=== PATIENT | male | born 1995 ===

== ENCOUNTER 2021-11-01 15:32 | Emergency (ER) | payer SELFPAY ==
[~2021-11-01] VITALS: Ht 177.8 cm; Wt 54.5 kg
[2021-11-01 16:31] VITALS: BP 144/78; PULSE 84; TEMP 98.5
== END 2021-11-01 17:09 | disposition left against medical advice (07) ==
LOC: COL.ER 15:32
DX: R44.3 Hallucinations, unspecified (principal); Z28.310 Unvaccinated for COVID-19

== ENCOUNTER 2021-11-04 23:33 | Emergency (ER) | payer SELFPAY ==
[~2021-11-04] VITALS: Ht 175.3 cm; Wt 54.5 kg
[2021-11-05 00:30] VITALS: BP 142/81; TEMP 98
[2021-11-05] MEDS ORDERED: TORADOL 10MG TA10 MG PO (00:59)
[2021-11-05 01:26] VITALS: PULSE 74
== END 2021-11-05 01:26 | disposition home or self-care (01) ==
LOC: COL.ER 23:33
DX: K02.9 Dental caries, unspecified (principal); Z28.310 Unvaccinated for COVID-19

== ENCOUNTER 2021-11-06 16:29 | Emergency (ER) | payer SELFPAY ==
[~2021-11-06] VITALS: Ht 175.3 cm; Wt 54.5 kg
[~2021-11-06 16:29] MED LIST: TORADOL 10MG TA10 MG PO
[2021-11-06 16:48] VITALS: TEMP 98.6
[2021-11-06 17:25] LABS: BASO % 0.4 % (0.0-2.0); EOS # 0.1 K/mm3 (0.0-0.7); EOS % 0.7 % (0.0-4.0); GRAN # 4.2 K/mm3 (1.4-6.5); GRAN % 61.1 % (42.2-75.2); HEMATOCRIT 41.9 % (42.0-52.0); HEMOGLOBIN 13.5 g/dl (13.5-18.0); LYMPH # 1.4 K/mm3 (1.2-3.4); LYMPH % 19.8 % (20.0-51.0); MEAN CELL VOLUME 97 fl (80.0-100.0); MEAN CORPUSCULAR HEMOGLOBIN 31 pg (27-31); MEAN CORPUSCULAR HGB CONC 32 g/dl (33.0-37.0); MEAN PLATELET VOLUME 10.9 fl (7.4-10.4); MONO # 1.2 K/mm3 (0.1-0.6); MONO % 17.9 % (1.7-9.3); PLATELET COUNT 186 K/mm3 (130-400); RED BLOOD COUNT 4.31 M/mm3 (4.20-5.60); REDCELL DISTRIBUTION WIDTH-CV 12.3 % (11.5-14.5)
[2021-11-06 17:41] LABS: COLLECTION METHOD CLEAN CATCH
[2021-11-06 17:45] LABS: ALANINE AMINOTRANSFERASE 19 U/L (0-55); ALBUMIN 3.8 gm/dL (3.5-5.0); ALKALINE PHOSPHATASE 72 U/L (40-150); ANION GAP 8 mmol/L (7-16); AST,SGOT 22 U/L (5-34); BILIRUBIN,TOTAL 0.3 mg/dL (0.2-1.2); BLOOD UREA NITROGEN 9 mg/dL (9-21); CALCIUM 9.1 mg/dL (8.4-10.2); CARBON DIOXIDE 26 mmol/L (22-29); CHLORIDE 108 mmol/L (98-107); CREATININE, serum 0.77 mg/dL (0.72-1.25); GLUCOSE 88 mg/dL (70-99); SODIUM 142 mmol/L (136-145)
[2021-11-06 17:48] LABS: ACETAMINOPHEN < 1.0 ug/mL (10-30); ALCOHOL(ethanol),MEDICAL < 10 mg/dL (0-10); SALICYLATE < 5.0 mg/dL (15.0-30.0)
[2021-11-06 18:15] LABS: TRICYCLIC ANTIDEPRESS URINE NEGATIVE
[2021-11-06 18:19] LABS: MUCOUS Present (NOT PRESENT); SQUAMOUS EPITHELIAL 0-2 /hpf (0-10); URINE BACTERIA None Seen /hpf (NONE SEEN); URINE RBC 0-2 /hpf (0-2)
[2021-11-06 18:21] LABS: URINE APPEARANCE Clear (CLEAR/HAZY); URINE BLOOD Negative (NEGATIVE); URINE COLOR Amber (YELLOW); URINE GLUCOSE Negative (NEGATIVE); URINE KETONE Negative (NEGATIVE); URINE NITRATE Negative (NEGATIVE); URINE PROTEIN(semi-quant) Negative (NEGATIVE)
[2021-11-06 20:06] VITALS: BP 132/78; PULSE 76
== END 2021-11-06 20:08 | disposition home or self-care (01) ==
LOC: COL.ER 16:29
PROVIDERS: Emergency Medicine
DX: F22 Delusional disorders (principal); F17.210 Nicotine dependence, cigarettes, uncomplicated; Z20.822 Contact with and (suspected) exposure to COVID-19; Z28.310 Unvaccinated for COVID-19

== ENCOUNTER 2021-11-07 04:40 | Emergency (ER) | payer SELFPAY ==
[~2021-11-07] VITALS: Ht 160 cm; Wt 68.2 kg
[2021-11-07 04:58] VITALS: BP 126/78; PULSE 98; TEMP 98.1
[2021-11-07 05:08] LABS: COLLECTION METHOD CLEAN CATCH
[2021-11-07 05:24] LABS: MUCOUS Present (NOT PRESENT); SQUAMOUS EPITHELIAL None Seen /hpf (0-10); URINE BACTERIA None Seen /hpf (NONE SEEN)
[2021-11-07 05:25] LABS: PH 7 (5-8); URINE APPEARANCE Clear (CLEAR/HAZY); URINE BLOOD TRACE-INTACT (NEGATIVE); URINE COLOR Yellow (YELLOW); URINE GLUCOSE Negative (NEGATIVE); URINE KETONE Negative (NEGATIVE); URINE NITRATE Negative (NEGATIVE); URINE PROTEIN(semi-quant) Negative (NEGATIVE)
[2021-11-07 05:33] LABS: TRICYCLIC ANTIDEPRESS URINE NEGATIVE
[2021-11-07 06:00] LABS: BASO % 0.3 % (0.0-2.0); EOS % 0.6 % (0.0-4.0); GRAN # 3.8 K/mm3 (1.4-6.5); GRAN % 58.6 % (42.2-75.2); HEMATOCRIT 37.7 % (42.0-52.0); HEMOGLOBIN 13.1 g/dl (13.5-18.0); LYMPH # 1.6 K/mm3 (1.2-3.4); LYMPH % 24.7 % (20.0-51.0); MEAN CORPUSCULAR HEMOGLOBIN 32 pg (27-31); MEAN CORPUSCULAR HGB CONC 35 g/dl (33.0-37.0); MEAN PLATELET VOLUME 10.8 fl (7.4-10.4); MONO % 15.6 % (1.7-9.3); PLATELET COUNT 192 K/mm3 (130-400); RED BLOOD COUNT 4.08 M/mm3 (4.20-5.60); REDCELL DISTRIBUTION WIDTH-CV 12.1 % (11.5-14.5)
[2021-11-07 06:03] LABS: MEAN CELL VOLUME 92 fl (80.0-100.0)
[2021-11-07 06:11] LABS: ACETAMINOPHEN < 1.0 ug/mL (10-30); ALANINE AMINOTRANSFERASE 18 U/L (0-55); ALBUMIN 3.7 gm/dL (3.5-5.0); ALCOHOL(ethanol),MEDICAL < 10 mg/dL (0-10); ALKALINE PHOSPHATASE 72 U/L (40-150); ANION GAP 9 mmol/L (7-16); AST,SGOT 23 U/L (5-34); BILIRUBIN,TOTAL 0.3 mg/dL (0.2-1.2); BLOOD UREA NITROGEN 9 mg/dL (9-21); CALCIUM 9.1 mg/dL (8.4-10.2); CARBON DIOXIDE 26 mmol/L (22-29); CHLORIDE 106 mmol/L (98-107); CREATININE, serum 0.75 mg/dL (0.72-1.25); GLUCOSE 92 mg/dL (70-99); POTASSIUM 3.7 mmol/L (3.5-4.5); SALICYLATE < 5.0 mg/dL (15.0-30.0); SODIUM 141 mmol/L (136-145); TOTAL PROTEIN 6.7 gm/dL (6.2-8.1)
== END 2021-11-07 06:35 | disposition home or self-care (01) ==
LOC: COL.ER 04:40
PROVIDERS: Emergency Medicine
DX: F29 Unspecified psychosis not due to a substance or known physiological condition (principal); Z28.310 Unvaccinated for COVID-19